=== PATIENT | female | born 1930 | race African-American/Black ===

== ENCOUNTER 2020-08-01 18:24 | Inpatient (IN) | payer OTHER ==
[~2020-08-01] VITALS: Ht 157.5 cm; Wt 59.0 kg
--- NOTE | 2020-08-01 18:34 | Emergency Room Report ---
History of Present Illness General Chief Complaint: Generalized Weakness Source: Medical Record, EMS Present Illness HPI Disclaimer: Please note that this report is being documented using DRAGON technology. This can lead to erroneous entry secondary to incorrect interpretation by the dictating instrument. HPI: 89-year-old female history of dementia, hypertension, PABLO presents for evaluation of weakness and decreased appetite. According to documentation patient did not eat breakfast and only ate part of her lunch. COVID-19 rapid test performed today at facility was negative. No reported recent fever, chills, vomiting, cough, diarrhea. Patient is demented but able to make her needs known. She denies any cough, congestion, chest pain, abdominal pain or nausea. She does not remember why she did not eat today. She states she would like to eat something now and is requesting gravy. She has a history of UTIs d ue to urinary incontinence. PMH: Dementia, PABLO, UTIs PSH: Reviewed chart Allergies: Reviewed chart Social Hx: Reviewed chart Allergies: Coded Allergies: No Known Allergies (Unverified , 08/01/20) COVID-19 Screening Contact w/high risk pt: No Experienced COVID-19 symptoms?: No COVID-19 Testing performed [employer]IST: Yes COVID-19 Screening: Negative COVID-19 COVID-19 Testing Source: [facility] 08/01 Patient History Last Menstrual Period: na Nursing Documentation-PMH Past Medical History: No History, Except For Hx Hypertension: Yes History Of Psychiatric Problem: Yes - dementia Review of Systems All Other Systems: negative except mentioned in HPI Physical Exam Vital Signs Date Time Temp Pulse Resp B/P (MAP) Pulse Ox O2 Delivery O2 Flow Rate FiO2 08/01/20 18:16 98.2 115 24 177/94 (121) 94 Room Air General: Awake and alert, no acute distress, hypertensive HEENT: NC/AT. EOMI. Cardiovascular: Tachycardic. S1 and S2 normal. No murmur appreciated Resp: Normal work of breathing. No cough, wheezing or crackles appreciated Abdomen: Abdomen is soft, nondistended. Nontender Skin: Intact. No abrasions, laceration or rash over the exposed skin MSK: Frail appearing. Moving all extremities. No obvious deformity. Neuro: Awake and alert. Mentating appropriately. Medical Decision Making Diagnostic Impression: Primary Impression: UTI (urinary tract infection) Additional Impression: Weakness ER Course 89-year-old female brought in for evaluation after decreased appetite today. Patient has a history of dementia but appears to be able to make her needs known. She states she would like to eat now but does not recall why she was not eating earlier. She has a history of UTI due to baseline incontinence and PABLO. No infiltrate seen on chest x-ray. Labs show elevated white count and evidence of urinary tract infection. Patient treated with Rocephin. Admitted to Dr. Calderón per health plan. Laboratory Tests Test 08/01/20 19:08 08/01/20 21:21 08/01/20 21:40 08/02/20 05:15 White Blood Count 22.0 K/UL (4.8-10.8) H 17.1 K/UL (4.8-10.8) H Red Blood Count 4.59 M/UL (4.20-5.40) 4.34 M/UL (4.20-5.40) Hemoglobin 14.0 G/DL (12.0-16.0) 13.2 G/DL (12.0-16.0) Hematocrit 39.0 % (37.0-47.0) 36.7 % (37.0-47.0) L Mean Corpuscular Volume 85 FL (80-99) 85 FL (80-99) Mean Corpuscular Hemoglobin 30.6 PG (27.0-31.0) 30.4 PG (27.0-31.0) Mean Corpuscular Hemoglobin Concent 36.0 G/DL (32.0-36.0) 35.9 G/DL (32.0-36.0) Red Cell Distribution Width 13.9 % (11.6-14.8) 13.3 % (11.6-14.8) Platelet Count 412 K/UL (150-450) 383 K/UL (150-450) Mean Platelet Volume 7.5 FL (6.5-10.1) 7.8 FL (6.5-10.1) Neutrophils (%) (Auto) % (45.0-75.0) 84.9 % (45.0-75.0) H Lymphocytes (%) (Auto) % (20.0-45.0) 9.4 % (20.0-45.0) L Monocytes (%) (Auto) % (1.0-10.0) 5.3 % (1.0-10.0) Eosinophils (%) (Auto) % (0.0-3.0) 0.1 % (0.0-3.0) Basophils (%) (Auto) % (0.0-2.0) 0.3 % (0.0-2.0) Differential Total Cells Counted 100 Neutrophils % (Manual) 85 % (45-75) H Lymphocytes % (Manual) 4 % (20-45) L Monocytes % (Manual) 5 % (1-10) Eosinophils % (Manual) 0 % (0-3) Basophils % (Manual) 0 % (0-2) Band Neutrophils 6 % (0-8) Platelet Estimate Adequate Platelet Morphology Normal Red Blood Cell Morphology Normal Troponin I 0.015 ng/mL (0.000-0.056) Urine Color Yellow Urine Appearance Slightly cloudy Urine pH 5 (4.5-8.0) Urine Specific [place] 1.020 (1.005-1.035) Urine Protein 2+ (NEGATIVE) H Urine Glucose (UA) Negative (NEGATIVE) Urine Ketones Negative (NEGATIVE) Urine Blood Negative (NEGATIVE) Urine Nitrite Negative (NEGATIVE) Urine Bilirubin Negative (NEGATIVE) Urine Urobilinogen Normal MG/DL (0.0-1.0) Urine Leukocyte Esterase 3+ (NEGATIVE) H Urine RBC 0-2 /HPF (0 - 2) Urine WBC 30-40 /HPF (0 - 2) H Urine Squamous Epithelial Cells Moderate /LPF (NONE/OCC) H Urine Bacteria Moderate /HPF (NONE) H Sodium Level 142 MMOL/L (136-145) 142 MMOL/L (136-145) Potassium Level 3.7 MMOL/L (3.5-5.1) 3.9 MMOL/L (3.5-5.1) Chloride Level 105 MMOL/L (98-107) 105 MMOL/L (98-107) Carbon Dioxide Level 32 MMOL/L (21-32) 33 MMOL/L (21-32) H Anion Gap 5 mmol/L (5-15) 5 mmol/L (5-15) Blood Urea Nitrogen 23 mg/dL (7-18) H 23 mg/dL (7-18) H Creatinine 0.9 MG/DL (0.55-1.30) 0.9 MG/DL (0.55-1.30) Estimated Glomerular Filtration Rate > 60 mL/min (>60) > 60 mL/min (>60) Glucose Level 138 MG/DL (74-106) H 109 MG/DL (74-106) H Calcium Level 9.9 MG/DL (8.5-10.1) 9.9 MG/DL (8.5-10.1) Phosphorus Level 3.0 MG/DL (2.5-4.9) Magnesium Level 1.9 MG/DL (1.8-2.4) Total Bilirubin 0.5 MG/DL (0.2-1.0) 0.5 MG/DL (0.2-1.0) Aspartate Amino Transferase (AST) 17 U/L (15-37) 15 U/L (15-37) Alanine Aminotransferase (ALT) 30 U/L (12-78) 30 U/L (12-78) Alkaline Phosphatase 74 U/L (46-116) 73 U/L (46-116) Total Protein 6.8 G/DL (6.4-8.2) 6.9 G/DL (6.4-8.2) Albumin 2.7 G/DL (3.4-5.0) L 2.7 G/DL (3.4-5.0) L Globulin 4.1 g/dL 4.2 g/dL Albumin/Globulin Ratio 0.7 (1.0-2.7) L 0.6 (1.0-2.7) L Test 08/03/20 09:25 White Blood Count 9.9 K/UL (4.8-10.8) Red Blood Count 3.96 M/UL (4.20-5.40) L Hemoglobin 12.0 G/DL (12.0-16.0) Hematocrit 33.3 % (37.0-47.0) L Mean Corpuscular Volume 84 FL (80-99) Mean Corpuscular Hemoglobin 30.4 PG (27.0-31.0) Mean Corpuscular Hemoglobin Concent 36.1 G/DL (32.0-36.0) H Red Cell Distribution Width 14.6 % (11.6-14.8) Platelet Count 395 K/UL (150-450) Mean Platelet Volume 7.7 FL (6.5-10.1) Neutrophils (%) (Auto) 81.5 % (45.0-75.0) H Lymphocytes (%) (Auto) 12.6 % (20.0-45.0) L Monocytes (%) (Auto) 5.0 % (1.0-10.0) Eosinophils (%) (Auto) 0.6 % (0.0-3.0) Basophils (%) (Auto) 0.3 % (0.0-2.0) Prothrombin Time 10.7 SEC (9.30-11.50) Prothrombin Time INR 1.0 (0.9-1.1) Activated Partial Thromboplast Time 27 SEC (23-33) Sodium Level 147 MMOL/L (136-145) H Potassium Level 3.0 MMOL/L (3.5-5.1) L Chloride Level 110 MMOL/L (98-107) H Carbon Dioxide Level 31 MMOL/L (21-32) Anion Gap 6 mmol/L (5-15) Blood Urea Nitrogen 31 mg/dL (7-18) H Creatinine 0.9 MG/DL (0.55-1.30) Estimated Glomerular Filtration Rate > 60 mL/min (>60) Glucose Level 142 MG/DL (74-106) H Calcium Level 9.4 MG/DL (8.5-10.1) Magnesium Level 1.9 MG/DL (1.8-2.4) Total Bilirubin 0.4 MG/DL (0.2-1.0) Aspartate Amino Transferase (AST) 17 U/L (15-37) Alanine Aminotransferase (ALT) 28 U/L (12-78) Alkaline Phosphatase 64 U/L (46-116) Pro-B-Type Natriuretic Peptide 208 pg/mL (0-125) H Total Protein 6.3 G/DL (6.4-8.2) L Albumin 2.4 G/DL (3.4-5.0) L Globulin 3.9 g/dL Albumin/Globulin Ratio 0.6 (1.0-2.7) L Thyroid Stimulating Hormone (TSH) 1.198 uiU/mL (0.358-3.740) Microbiology Date/Time Source Procedure Growth Status 08/02/20 17:40 Nasopharynx SARS-CoV-2 RdRp Gene Assay - Final Complete EKG Diagnostic Results Troponin ordered: Yes When was troponin ordered?: Aug 01, 2020 EKG Time: 18:38 Rate: tachycardiac Rhythm: NSR Other Impression Tachycardia with sinus rhythm. Difficult to interpret due to baseline artifact and patient motion Rhythm Strip Diag. Results Rhythm Strip Time: 18:38 EP Interpretation: yes Rate: 100s Rhythm: NSR Chest X-Ray Diagnostic Results Chest X-Ray Diagnostic Results : Chest X-Ray Ordered: Yes # of Views/Limited/Complete: 1 View Indication: Other - Weakness EP Interpretation: Yes Interpretation: no consolidation, no effusion, no pneumothorax Impression: No acute disease Electronically Signed by: Electronically signed by Dr. Maurice Bullard MD Last Vital Signs Date Time Temp Pulse Resp B/P (MAP) Pulse Ox O2 Delivery O2 Flow Rate FiO2 08/01/20 18:16 98.2 115 24 177/94 (121) 94 Room Air Disposition: ADMITTED INPATIENT Condition: Stable Maurice Bullard MD Aug 01, 2020 18:34
[2020-08-01 19:00] VITALS: BP 165/93
--- NOTE | 2020-08-01 19:06 | Diagnostic Imaging Report ---
EXAM: XR Chest, 1 View CLINICAL HISTORY: WEAK TECHNIQUE: Frontal view of the chest. COMPARISON: No relevant prior studies available. FINDINGS: Lungs: Low lung volumes with bronchovascular crowding. No consolidation, pleural effusion, or pneumothorax. Pleural space: See above. Heart: Unremarkable. No cardiomegaly. Mediastinum: Unremarkable. Bones/joints: No acute abnormality IMPRESSION: 1. Low lung volumes with bronchovascular crowding. 2. Otherwise no acute cardiopulmonary disease. 3. If there is continued concern, consider frontal and lateral chest radiographs or CT.
[2020-08-01 19:19] LABS: MEAN CORPUSCULAR VOLUME 85 FL (80-99); RED BLOOD COUNT 4.59 M/UL (4.20-5.40)
[2020-08-01 19:20] LABS: PLATELET COUNT 412 K/UL (150-450); RED CELL DISTRIBUTION WIDTH 13.9 % (11.6-14.8)
[2020-08-01 21:43] LABS: APPEARANCE,URINE SLIGHTLY CLOUDY; BILIRUBIN, URINE NEGATIVE (NEGATIVE); GLUCOSE, URINE (UA) NEGATIVE (NEGATIVE); KETONES,URINE NEGATIVE (NEGATIVE); LEUKOCYTE ESTERASE ,URINE 3+ (NEGATIVE); NITRITE,URINE NEGATIVE (NEGATIVE); PH,URINE 5 (4.5-8.0); PROTEIN,URINE 2+ (NEGATIVE); UROBILINOGEN,URINE NORMAL MG/DL (0.0-1.0)
[2020-08-01 21:53] LABS: COLOR,URINE YELLOW
[2020-08-01 22:00] VITALS: BP 142/85
[2020-08-01] MEDS ORDERED: cefTRIAXone 1 GM in NS 55 ML IVPB ONE (22:00)
[2020-08-01 22:11] LABS: ALANINE AMINOTRANSFERASE 30 U/L (12-78); ALBUMIN 2.7 G/DL (3.4-5.0); ALBUMIN/GLOBULIN RATIO 0.7 (1.0-2.7); ALKALINE PHOSPHATASE 74 U/L (46-116); ANION GAP 5 mmol/L (5-15); ASPARTATE AMINO TRANSFERASE 17 U/L (15-37); BILIRUBIN,TOTAL 0.5 MG/DL (0.2-1.0); BLOOD UREA NITROGEN 23 mg/dL (7-18); CALCIUM 9.9 MG/DL (8.5-10.1); CARBON DIOXIDE 32 MMOL/L (21-32); CHLORIDE 105 MMOL/L (98-107); CREATININE 0.9 MG/DL (0.55-1.30); POTASSIUM 3.7 MMOL/L (3.5-5.1); SODIUM 142 MMOL/L (136-145)
[2020-08-02] VITALS (9 sets, daily range): BP systolic 96–168; BP diastolic 77–101
[2020-08-02 05:23] LABS: BASOPHILS % (AUTO) 0.3 % (0.0-2.0); EOSINOPHILS % (AUTO) 0.1 % (0.0-3.0); HEMATOCRIT 36.7 % (37.0-47.0); HEMOGLOBIN 13.2 G/DL (12.0-16.0); LYMPHOCYTES % (AUTO) 9.4 % (20.0-45.0); MEAN CORPUSCULAR VOLUME 85 FL (80-99); MONOCYTES % (AUTO) 5.3 % (1.0-10.0); NEUTROPHILS % (AUTO) 84.9 % (45.0-75.0); PLATELET COUNT 383 K/UL (150-450); RED BLOOD COUNT 4.34 M/UL (4.20-5.40); RED CELL DISTRIBUTION WIDTH 13.3 % (11.6-14.8); WHITE BLOOD COUNT 17.1 K/UL (4.8-10.8)
[2020-08-02 05:32] LABS: ANION GAP 5 mmol/L (5-15); BLOOD UREA NITROGEN 23 mg/dL (7-18); CALCIUM 9.9 MG/DL (8.5-10.1); CARBON DIOXIDE 33 MMOL/L (21-32); CHLORIDE 105 MMOL/L (98-107); CREATININE 0.9 MG/DL (0.55-1.30); POTASSIUM 3.9 MMOL/L (3.5-5.1); SODIUM 142 MMOL/L (136-145)
[2020-08-02 05:37] LABS: ALANINE AMINOTRANSFERASE 30 U/L (12-78); ALBUMIN 2.7 G/DL (3.4-5.0); ALBUMIN/GLOBULIN RATIO 0.6 (1.0-2.7); ALKALINE PHOSPHATASE 73 U/L (46-116); ASPARTATE AMINO TRANSFERASE 15 U/L (15-37); BILIRUBIN,TOTAL 0.5 MG/DL (0.2-1.0)
--- NOTE | 2020-08-02 15:00 | HX and Phyl Repo 2 Sig ---
DATE OF ADMISSION: 08/01/2020 ATTENDING PHYSICIAN: Finesse Calderón M.D. REASON FOR ADMISSION: Anorexia, weakness, confusion. HISTORY OF PRESENT ILLNESS: This is an 89-year-old female with a history of dementia, hypertension, PABLO, who presented for evaluation of anorexia from her facility. She resides at [facility]. She reported no recent fever, chills, vomiting, cough, diarrhea. The patient denies cough, congestion, chest pain, abdominal pain, nausea. In the ER, she did not remember why she did not eat her breakfast or lunch and requested to have some gravy per ER note. The patient was negative for COVID-19. Chest x-ray does not show infiltrates. Initial laboratory testing shows leukocytosis, elevated BUN, low albumin. Urinalysis shows evidence for UTI. PAST MEDICAL HISTORY: Notable for dementia, PABLO, UTIs, hypertension. MEDICATIONS: Amlodipine, Dulcolax, milk of magnesia, Tylenol Extra Strength, Tylenol suppository, Tylenol tablet. ALLERGIES: No known allergies. FAMILY HISTORY: Noncontributory. PERSONAL/SOCIAL HISTORY: Resident of [facility]. REVIEW OF SYSTEMS: HEENT: Denies any headaches, blurry vision, hoarseness, dysphagia, hearing loss, tinnitus, or loss of balance. CHEST AND LUNGS: Denies any chest discomfort or hemoptysis. CARDIOVASCULAR: Denies any exertional chest pain, pressure, palpitation, orthopnea, PND. GASTROINTESTINAL: Denies vomiting, abdominal pain, or oily or foul-smelling stools. GENITOURINARY: Denies any frequency, urgency. Denies flank pain. NEUROLOGICAL: Denies seizure activity, dizziness, or fainting episode. PHYSICAL EXAMINATION: VITAL SIGNS: Blood pressure 165/92, heart rate 101, respiratory rate 18, weight 59 kg, height 157 cm. GENERAL: Frail appearing. HEENT: Normocephalic, atraumatic. EOM intact. CARDIOVASCULAR: Tachycardic. S1, S2 normal. RESPIRATORY: Normal work of breathing. No cough, wheezing, or crackles appreciated. ABDOMEN: Soft, nondistended, nontender. SKIN: Intact, no abrasions, laceration, or rash over the exposed skin. MUSCULOSKELETAL: Frail appearing. Moving all extremities. No obvious deformity. NEUROLOGIC: Awake and alert. Mentating appropriately. LABORATORY DATA: Lab testing shows WBC 17.1 with neutrophil predominance. Chemistries show BUN 23, albumin 2.7. Urinalysis shows 2+ protein, 3+ leukocyte esterase, urine bacteria. IMPRESSION: 1. Hypertension - we will continue home antihypertensive medications. 2. UTI - status post Zosyn IV once in the ER. We will continue Zosyn. 3. Anorexia, likely secondary to dementia. - In the ER, she stated she does not remember why she did not eat and requested some gravy. We will follow. The care for this patient was discussed with my supervising physician. Time spent for this case was approximately 31 minutes. Finesse Calderón M.D. ROSE Nicole DR: DYLLAN JOB#: [id number] CC: ARTEMIO
[2020-08-02] MEDS ORDERED: TYLENOL EXTRA500 MG ORAL (16:20)
[2020-08-02] MEDS ORDERED: AMLODIPINE BESYL5 MG ORAL (16:20)
[2020-08-02] MEDS ORDERED: ACETAMINOPHEN120 MG RECTAL (16:20)
[2020-08-02] MEDS ORDERED: BISACODYL5 MG ORAL (16:20)
[2020-08-02] MEDS ORDERED: MILK OF MA400 MG/51 ORAL (16:20)
[2020-08-02] MEDS ORDERED: Zosyn 2.25gm inj IV SCH (18:00)
[2020-08-02] MEDS ORDERED: Zosyn 3.375gm in NS 110ml IVPB SCH (22:00)
[2020-08-02] MEDS: Zosyn 3.375gm in NS 110ml IVPB SCH (22:43)
[2020-08-03] VITALS: BP 158/97
[2020-08-03 04:00] VITALS: BP 158/96
[2020-08-03] MEDS: Zosyn 3.375gm in NS 110ml IVPB SCH ×4 (05:40→21:14)
[2020-08-03 08:00] VITALS: BP 132/80
[2020-08-03] MEDS: Heparin 5000 units/ml inj SUBQ SCH ×2 (08:24→21:13)
[2020-08-03 10:18] LABS: BASOPHILS % (AUTO) 0.3 % (0.0-2.0); EOSINOPHILS % (AUTO) 0.6 % (0.0-3.0); HEMATOCRIT 33.3 % (37.0-47.0); LYMPHOCYTES % (AUTO) 12.6 % (20.0-45.0); MEAN CORPUSCULAR VOLUME 84 FL (80-99); NEUTROPHILS % (AUTO) 81.5 % (45.0-75.0); PLATELET COUNT 395 K/UL (150-450); RED BLOOD COUNT 3.96 M/UL (4.20-5.40); RED CELL DISTRIBUTION WIDTH 14.6 % (11.6-14.8); WHITE BLOOD COUNT 9.9 K/UL (4.8-10.8)
[2020-08-03 10:57] LABS: ALANINE AMINOTRANSFERASE 28 U/L (12-78); ALBUMIN 2.4 G/DL (3.4-5.0); ALBUMIN/GLOBULIN RATIO 0.6 (1.0-2.7); ALKALINE PHOSPHATASE 64 U/L (46-116); ANION GAP 6 mmol/L (5-15); ASPARTATE AMINO TRANSFERASE 17 U/L (15-37); BILIRUBIN,TOTAL 0.4 MG/DL (0.2-1.0); BLOOD UREA NITROGEN 31 mg/dL (7-18); CALCIUM 9.4 MG/DL (8.5-10.1); CARBON DIOXIDE 31 MMOL/L (21-32); CHLORIDE 110 MMOL/L (98-107); CREATININE 0.9 MG/DL (0.55-1.30); SODIUM 147 MMOL/L (136-145)
--- NOTE | 2020-08-03 11:09 | Pulmonology Progress Note ---
Subjective ROS Limited/Unobtainable: No Interval Events: ate breakfast this am per nursing Constitutional: Reports: no symptoms HEENT: Repors: no symptoms Respiratory: Reports: no symptoms Cardiovascular: Reports: no symptoms Gastrointestinal/Abdominal: Reports: no symptoms Allergies: Coded Allergies: No Known Allergies (Unverified , 08/01/20) Objective Last 24 Hour Vital Signs Date Time Temp Pulse Resp B/P (MAP) Pulse Ox O2 Delivery O2 Flow Rate FiO2 08/03/20 08:22 89 132/80 08/03/20 08:00 97.6 89 18 132/80 (97) 94 08/03/20 07:55 Room Air 08/03/20 04:00 98.2 97 16 158/96 (116) 97 08/03/20 00:00 98.1 108 16 158/97 (117) 98 08/02/20 22:00 Room Air 08/02/20 21:00 Room Air 08/02/20 20:00 97.2 89 18 96/77 (83) 95 08/02/20 19:30 98.0 85 15 159/97 99 Room Air 99 08/02/20 18:00 98.2 76 19 161/95 97 Room Air 08/02/20 15:00 98.7 75 19 168/92 97 Room Air 08/02/20 13:00 98.3 89 15 165/92 100 Room Air Intake and Output 08/02/20 08/03/20 19:00 07:00 Intake Total 110 ml Balance 110 ml Intake Oral 0 ml IV Total 110 ml # Voids 2 Objective 08/03 currently saturating at 93% on RA General Appearance: WD/WN, no acute distress HEENT: normocephalic, atraumatic Respiratory: lungs clear Cardiovascular: normal rate, regular rhythm Abdomen: soft, non tender Microbiology Date/Time Source Procedure Growth Status 08/02/20 17:40 Nasopharynx SARS-CoV-2 RdRp Gene Assay - Final Complete 08/02/20 08:00 Rectum Received 08/01/20 21:21 Urine,Clean Catch Urine Culture - Preliminary Gram Negative Bacillus 1 Gram Negative Bacillus 2 Resulted Laboratory Tests 08/03/20 09:25: White Blood Count 9.9, Red Blood Count 3.96L, Hemoglobin 12.0, Hematocrit 33.3L, Mean Corpuscular Volume 84, Mean Corpuscular Hemoglobin 30.4, Mean Corpuscular Hemoglobin Concent 36.1H, Red Cell Distribution Width 14.6, Platelet Count 395, Mean Platelet Volume 7.7, Neutrophils (%) (Auto) 81.5H, Lymphocytes (%) (Auto) 12.6L, Monocytes (%) (Auto) 5.0, Eosinophils (%) (Auto) 0.6, Basophils (%) (Auto) 0.3, Prothrombin Time 10.7, Prothromb Time International Ratio 1.0, Activated Partial Thromboplast Time 27, Sodium Level 147H, Potassium Level 3.0L, Chloride Level 110H, Carbon Dioxide Level 31, Anion Gap 6, Blood Urea Nitrogen 31H, Creatinine 0.9, Estimat Glomerular Filtration Rate > 60, Glucose Level 142H , Calcium Level 9.4, Magnesium Level 1.9, Total Bilirubin 0.4, Aspartate Amino Transf (AST/SGOT) 17, Alanine Aminotransferase (ALT/SGPT) 28, Alkaline Phosphatase 64, Pro-B-Type Natriuretic Peptide [Pending], Total Protein 6.3L, Albumin 2.4L, Globulin 3.9, Albumin/Globulin Ratio 0.6L, Thyroid Stimulating Hormone (TSH) 1.198 Current Medications Medications (Trade) Dose Ordered Sig/Ryan Route PRN Reason Start Time Stop Time Status Last Admin Dose Admin Amlodipine Besylate (Norvasc) 10 mg DAILY ORAL 08/03/20 09:00 09/02/20 08:59 08/03/20 08:22 Dextrose (Dextrose 50%) 25 ml Q30M PRN IV Hypoglycemia 08/02/20 21:00 10/31/20 20:59 Dextrose (Dextrose 50%) 50 ml Q30M PRN IV Hypoglycemia 08/02/20 21:00 10/31/20 20:59 Heparin Sodium (Porcine) (Heparin 5000 units/ml) 5,000 units EVERY 12 HOURS SUBQ 08/03/20 09:00 09/17/20 08:59 08/03/20 08:24 Piperacillin Sod/ Tazobactam Sod 3.375 gm/Sodium Chloride 110 ml @ 27.5 mls/hr Q8HR IVPB 08/02/20 22:00 08/09/20 21:59 08/03/20 05:40 Assessment/Plan Assessment/Plan 1. Hypertension - we will continue home antihypertensive medications. - in control 2. UTI - s/p Zosyn IV once in the ER. - On Zosyn. 3. Anorexia, likely secondary to dementia. - In the ER, she stated she does not remember why she did not eat and requested some gravy. - Pt ate breakfast this am per nursing 4. hypokalemia - KCl 40 mEq PO once added - monitor K We will follow. The care for this patient was discussed with my supervising physician. Time spent for this case was approximately 31 minutes. Sanju Munguia Aug 03, 2020 11:09 Finesse Calderón MD Aug 03, 2020 15:31
[2020-08-03 12:00] VITALS: BP 114/75
[2020-08-03 16:00] VITALS: BP 136/81
[2020-08-03 19:56] VITALS: BP_SYST 153; BP_SYST 163; BP_DIAS 92
[2020-08-03] MEDS ORDERED: LORazepam 0.5mg tab ORAL PRN (21:45)
[2020-08-04 04:00] VITALS: BP 136/89
[2020-08-04] MEDS: Zosyn 3.375gm in NS 110ml IVPB SCH ×3 (05:57→21:02)
[2020-08-04 07:59] VITALS: BP 164/94
[2020-08-04] MEDS: Heparin 5000 units/ml inj SUBQ SCH ×2 (08:12→21:03)
[2020-08-04 09:00] VITALS: BP 140/75
--- NOTE | 2020-08-04 11:16 | Pulmonology Progress Note ---
Subjective ROS Limited/Unobtainable: No Interval Events: pt subjectively feeling better Constitutional: Reports: no symptoms HEENT: Repors: no symptoms Respiratory: Reports: no symptoms Cardiovascular: Reports: no symptoms Gastrointestinal/Abdominal: Reports: no symptoms Allergies: Coded Allergies: No Known Allergies (Unverified , 08/01/20) Objective Last 24 Hour Vital Signs Date Time Temp Pulse Resp B/P (MAP) Pulse Ox O2 Delivery O2 Flow Rate FiO2 08/04/20 09:00 71 140/75 (96) 08/04/20 08:03 76 164/94 08/04/20 07:59 98.2 76 18 164/94 (117) 94 76 08/04/20 07:30 Room Air 08/04/20 04:00 97.3 70 18 136/89 (105) 95 08/03/20 21:00 Room Air 08/03/20 19:56 98.2 84 20 153/92 (112) 94 08/03/20 16:00 98.2 79 18 136/81 (99) 95 08/03/20 12:00 97.3 90 18 114/75 (88) 94 Intake and Output 08/03/20 08/04/20 19:00 07:00 Intake Total 600 ml 187.5 ml Balance 600 ml 187.5 ml Intake Oral 600 ml 50 ml IV Total 137.5 ml # Voids 1 Objective 08/04 currently saturating well on RA 08/03 currently saturating at 93% on RA General Appearance: WD/WN, no acute distress HEENT: normocephalic, atraumatic Respiratory: lungs clear Cardiovascular: normal rate, regular rhythm Abdomen: soft, non tender Microbiology Date/Time Source Procedure Growth Status 08/02/20 17:40 Nasopharynx SARS-CoV-2 RdRp Gene Assay - Final Complete 08/02/20 08:00 Rectum VRE Culture - Final Enterococcus Faecalis - Vre Complete 08/02/20 08:00 Rectum Received 08/01/20 21:21 Urine,Clean Catch Urine Culture - Preliminary Gram Negative Bacillus 1 Gram Negative Bacillus 2 Resulted Current Medications Medications (Trade) Dose Ordered Sig/Ryan Route PRN Reason Start Time Stop Time Status Last Admin Dose Admin Amlodipine Besylate (Norvasc) 10 mg DAILY ORAL 08/03/20 09:00 09/02/20 08:59 08/04/20 08:03 Dextrose (Dextrose 50%) 25 ml Q30M PRN IV Hypoglycemia 08/02/20 21:00 10/31/20 20:59 Dextrose (Dextrose 50%) 50 ml Q30M PRN IV Hypoglycemia 08/02/20 21:00 10/31/20 20:59 Heparin Sodium (Porcine) (Heparin 5000 units/ml) 5,000 units EVERY 12 HOURS SUBQ 08/03/20 09:00 09/17/20 08:59 08/04/20 08:12 Lorazepam (Ativan) 0.5 mg TIDPRN PRN ORAL For Anxiety 08/03/20 21:45 08/10/20 21:44 08/03/20 21:51 Piperacillin Sod/ Tazobactam Sod 3.375 gm/Sodium Chloride 110 ml @ 27.5 mls/hr Q8HR IVPB 08/02/20 22:00 08/09/20 21:59 08/04/20 05:57 Assessment/Plan Assessment/Plan 1. Hypertension - we will continue home antihypertensive medications. - in control 2. Sepsis due to UTI - s/p Zosyn IV once in the ER. - On Zosyn. - awaiting urine Cx and sensitivity result; if Cx sensitive to PO Abx, will dc tomorrow 3. Anorexia, likely secondary to dementia. - In the ER, she stated she does not remember why she did not eat and requested some gravy. - Pt is eating now 4. hypokalemia - replaced - monitor K We will follow. The care for this patient was discussed with my supervising physician. Time spent for this case was approximately 31 minutes. Sanju Munguia Aug 04, 2020 11:15 Finesse Calderón MD Aug 05, 2020 10:04
[2020-08-04 12:00] VITALS: BP 106/61
--- NOTE | 2020-08-04 13:24 | CDS Physician Query ---
Clarification is required for compliance, coding accuracy, and to reflect severity of illness for this patient Dear Mr. Sanju Munguia, Dr. Finesse Calderón Date: 08/04/2020 CDS name: Miriam Hathaway Clinical documentation states: HNP: 89-year-old female with a history of dementia, hypertension, PABLO, who presented for evaluation of anorexia from her facility...UTI Vitals/labs on admission: WBC 22, Temp 98.2, AK 115, RR 24 Treatment: IV [id number] According to the clinical indications above, please indicate below the condition PHYSICIAN RESPONSE: [] Sepsis due to UTI [] SIRS [] SIRS with organ dysfunction [] Septic Shock [] Not applicable [] Other: Present on Admission: Yes No Clinically Undetermined Physician signature Date Please also document in your Progress Notes and/or Discharge Summary and indicate if the condition was present on admission. ABELD
[2020-08-04 16:00] VITALS: BP 121/76
[2020-08-04 20:00] VITALS: BP 129/83
[2020-08-05] VITALS: BP 143/78
[2020-08-05 04:00] VITALS: BP 166/90
[2020-08-05] MEDS: Zosyn 3.375gm in NS 110ml IVPB SCH ×2 (05:22→13:10)
[2020-08-05 07:17] LABS: ANION GAP 5 mmol/L (5-15); BLOOD UREA NITROGEN 17 mg/dL (7-18); CALCIUM 9.6 MG/DL (8.5-10.1); CARBON DIOXIDE 32 MMOL/L (21-32); CHLORIDE 109 MMOL/L (98-107); CREATININE 0.8 MG/DL (0.55-1.30); POTASSIUM 3.1 MMOL/L (3.5-5.1); SODIUM 146 MMOL/L (136-145)
[2020-08-05 08:00] VITALS: BP 162/98
[2020-08-05 08:32] LABS: BASOPHILS % (AUTO) 0.8 % (0.0-2.0); HEMOGLOBIN 12.1 G/DL (12.0-16.0); LYMPHOCYTES % (AUTO) 29.6 % (20.0-45.0); MEAN CORPUSCULAR VOLUME 88 FL (80-99); MONOCYTES % (AUTO) 8.3 % (1.0-10.0); NEUTROPHILS % (AUTO) 60.4 % (45.0-75.0); PLATELET COUNT 389 K/UL (150-450); RED BLOOD COUNT 3.99 M/UL (4.20-5.40); RED CELL DISTRIBUTION WIDTH 13.3 % (11.6-14.8); WHITE BLOOD COUNT 6.3 K/UL (4.8-10.8)
[2020-08-05] MEDS: Heparin 5000 units/ml inj SUBQ SCH (09:27)
--- NOTE | 2020-08-05 10:06 | Pulmonology Progress Note ---
Subjective ROS Limited/Unobtainable: No Interval Events: pt subjectively feeling better Constitutional: Reports: no symptoms HEENT: Repors: no symptoms Respiratory: Reports: no symptoms Cardiovascular: Reports: no symptoms Gastrointestinal/Abdominal: Reports: no symptoms Allergies: Coded Allergies: No Known Allergies (Unverified , 08/01/20) Objective Last 24 Hour Vital Signs Date Time Temp Pulse Resp B/P (MAP) Pulse Ox O2 Delivery O2 Flow Rate FiO2 08/05/20 09:25 77 162/98 08/05/20 04:00 97.6 72 18 166/90 (115) 95 08/05/20 00:00 97.2 72 18 143/78 (99) 98 08/04/20 22:04 Room Air 08/04/20 20:00 97.3 77 16 129/83 (98) 93 08/04/20 16:00 97.4 71 18 121/76 (91) 94 08/04/20 12:00 98.0 88 18 106/61 (76) 94 Intake and Output 08/04/20 08/05/20 18:59 06:59 Intake Total 700 ml 0 ml Balance 700 ml 0 ml Intake Oral 700 ml 0 ml # Voids 2 1 General Appearance: WD/WN, no acute distress HEENT: normocephalic, atraumatic Respiratory: lungs clear Cardiovascular: normal rate, regular rhythm Abdomen: soft, non tender Microbiology Date/Time Source Procedure Growth Status 08/02/20 17:40 Nasopharynx SARS-CoV-2 RdRp Gene Assay - Final Complete Laboratory Tests 08/05/20 05:00: White Blood Count 6.3, Red Blood Count 3.99L, Hemoglobin 12.1, Hematocrit 35.0L, Mean Corpuscular Volume 88, Mean Corpuscular Hemoglobin 30.3, Mean Corpuscular Hemoglobin Concent 34.6, Red Cell Distribution Width 13.3, Platelet Count 389, Mean Platelet Volume 7.6, Neutrophils (%) (Auto) 60.4, Lymphocytes (%) (Auto) 29.6, Monocytes (%) (Auto) 8.3, Eosinophils (%) (Auto) 1.0, Basophils (%) (Auto) 0.8, Sodium Level 146H, Potassium Level 3.1L, Chloride Level 109H, Carbon Dioxide Level 32, Anion Gap 5, Blood Urea Nitrogen 17, Creatinine 0.8, Estimat Glomerular Filtration Rate > 60, Glucose Level 91, Calcium Level 9.6 Current Medications Medications (Trade) Dose Ordered Sig/Ryan Route PRN Reason Start Time Stop Time Status Last Admin Dose Admin Amlodipine Besylate (Norvasc) 10 mg DAILY ORAL 08/03/20 09:00 09/02/20 08:59 08/05/20 09:25 Dextrose (Dextrose 50%) 25 ml Q30M PRN IV Hypoglycemia 08/02/20 21:00 10/31/20 20:59 Dextrose (Dextrose 50%) 50 ml Q30M PRN IV Hypoglycemia 08/02/20 21:00 10/31/20 20:59 Heparin Sodium (Porcine) (Heparin 5000 units/ml) 5,000 units EVERY 12 HOURS SUBQ 08/03/20 09:00 09/17/20 08:59 08/05/20 09:27 Lorazepam (Ativan) 0.5 mg TIDPRN PRN ORAL For Anxiety 08/03/20 21:45 08/10/20 21:44 08/03/20 21:51 Piperacillin Sod/ Tazobactam Sod 3.375 gm/Sodium Chloride 110 ml @ 27.5 mls/hr Q8HR IVPB 08/02/20 22:00 08/09/20 21:59 08/05/20 05:22 Assessment/Plan Assessment/Plan 1. Hypertension - Controlled on medications 2. Sepsis due to UTI - s/p Zosyn IV once in the ER. - On Zosyn. - has E.coli and Proteus; Sensitive to Levaquin - Will switch to PO Levaquin and DC to SNF 3. Anorexia, likely secondary to dementia. - In the ER, she stated she does not remember why she did not eat and requested some gravy. - Pt is eating now 4. hypokalemia - replaced - monitor Finesse Castillo MD Aug 05, 2020 10:06
[2020-08-05] MEDS ORDERED: LEVOFLOXACIN500 MG ORAL (10:07)
[2020-08-05 12:00] VITALS: BP 131/72
[2020-08-05 16:00] VITALS: BP 135/74
--- NOTE | 2020-08-06 13:20 | Discharge Summary ---
Discharge Summary Discharge Summary _ DATE OF ADMISSION: 08/01/2020 DATE OF DISCHARGE: 08/05/2020 DISCHARGED BY: Dr. Calderón REASON FOR ADMISSION: 89 years old female with past medical history of hypertension, dementia, presented for evaluation due to generalized weakness and decreased appetite. Rapid COVID-19 in the facility was negative. No reported fever or chills. No cough, congestion or chest pain. No vomiting or diarrhea. Upon evaluation patient was tachycardic with heart rate 115; blood pressure was elevated 177/94 ; pulse oximetry was 94% on the room air. Laboratory work-up revealed significant leukocytosis WBC 22 , stable hemoglobin , hematocrit and platelet count. Troponin was negative Stable electrolytes . BUN 23 creatinine 0.9 . Glucose 138 , stable LFT. Urinalysis revealed pyuria and moderate bacteria , +2 protein. Chest x-ray revealed low lung volumes with bronchovascular crowding , otherwise no acute cardiopulmonary disease. Patient started on empiric antibiotic and admitted for further management. HOSPITAL COURSE: Patient admitted to medical surgical floor. Patient started on empiric antibiotic and gentle hydration. DVT prophylaxis provided. Potassium was replaced. Urine culture revealed E. coli and Proteus mirabilis Leukocytosis resolved in 2 days. No fevers. Zosyn changed to Levaquin upon discharge to the facility to complete the course. Rapid COVID-19 on 08/02 was negative. Blood pressure was closely monitored and remained stable. Potassium was replaced. Patient clinically stabilized and was ready for transfer back to long-term facility for continuation of care. FINAL DIAGNOSES: Sepsis due to UTI UTI with E. coli and Proteus mirabilis Hypertension Anorexia likely due to dementia Hypokalemia DISCHARGE MEDICATIONS: See Medication Reconciliation list. DISCHARGE INSTRUCTIONS: Patient was discharged to the long-term facility. Follow up with medical doctor at the facility. I have been assigned to dictate discharge summary for this account. I was not involved in the patient's management. Marni Mock NP Aug 06, 2020 13:20
== END 2020-08-05 18:10 | DRG 872 ==
LOC: EDBD 18:24 → EMR 18:40 → 3E 20:10 → EDBEDREQ 08-02 18:39
DX: A41.9 Sepsis, unspecified organism (principal); N39.0 Urinary tract infection, site not specified; R63.0 Anorexia; I10 Essential (primary) hypertension; F03.90 Unspecified dementia, unspecified severity, without behavioral disturbance, psychotic disturbance, mood disturbance, and anxiety; B96.20 Unspecified Escherichia coli [E. coli] as the cause of diseases classified elsewhere; B96.4 Proteus (mirabilis) (morganii) as the cause of diseases classified elsewhere; E87.6 Hypokalemia
CPT/HCPCS: 36415; 71045; 80048; 80053; 81003; 83735; 83880; 84100; 84443; 84484; 85007; 85025; 85610; 85730; 87081; 87086; 87181; 93005; 96365; 99284; J8499; U0002